=== PATIENT | male | born 1995 | race Caucasian/White ===

== ENCOUNTER 2021-01-11 17:20 | Emergency (ER) | payer SELFPAY ==
[2021-01-11 17:30] VITALS: BP 131/76; PULSE 70; RESP 16; TEMP 36.6; O2SAT 100
--- NOTE | 2021-01-11 17:55 | ED.GENADULT ---
HPI - General Adult General Chief complaint: Upper Respiratory Infection Stated complaint: dizzy/fulton/abdominal pain Source: patient and RN notes reviewed Mode of arrival: ambulatory History of Present Illness HPI narrative: This is a 25-year-old male who presented to urgent care with complaints of a migraine headache with dizziness and abdominal pain that developed 2 hours ago. Patient does have a history of migraine headaches and in the past has taken medications for he has not recently been prescribed any medications for his migraine headache. Patient did note that he takes Excedrin's on occasion but did not take any before coming to our urgent care he also complains of abdominal pain but notes that he has taken no medication with could be the cause of his abdominal pain. The patient denies SOB, CP, palpitation, extremity numbness, lightheadedness, mental status, recent head injury constipation, diarrhea, chills, Hematochezia or fever. Related Data Allergies Allergy/AdvReac Type Severity Reaction Status Date / Time No Known Allergies Allergy Verified 01/11/21 17:34 Review of Systems Review of Systems: A 14 organ system Review of Systems was performed and pertinent positives included in the HPI, otherwise remaining ROS is negative. [facility] Family History Family History (Updated 01/11/21 @ 17:58 by LAILA Rivero) Other Family history non-contributory Exam Narrative: GENERAL: This is a well-nourished, well-developed patient, in no apparent distress. HEAD: normocephalic, atraumatic. EYES: PERRL. Sclera clear/white. Vision is grossly intact. EARS: External ears normal, auditory canals clear and without drainage, TMs normal without perforation. Hearing grossly intact. NOSE: External nose normal with no obvious nasal discharge, nares without redness, no rhinorrhea. THROAT: Mucous membranes moist, posterior pharynx clear. NECK: Neck supple, non-tender without lymphadenopathy, masses or thyromegaly. CARDIOVASCULAR: Regular rate and rhythm without murmurs, gallops, or rubs. RESPIRATORY: Clear to auscultation. Breath sounds equal bilaterally. No wheezes, rales, or rhonchi. GASTROINTESTINAL: Abdomen soft, epigastric tender, nondistended. Bowel sounds are active. No hepato-splenomegaly, or palpable masses. No guarding. SKIN: warm, intact with no suspicious lesions or rash, good texture and turgor. NEURO: awake, alert, and oriented to person, place and time. There were no obvious focal neurologic abnormalities. Steady gait EXTREMITIES: Normal range of motion. No edema. No calf tenderness. Negative Homans sign bilaterally. BACK: Nontender without deformity or crepitance. No flank tenderness. Course Course Emergency Course: Patient will be giving Imitrex for migraine headaches he will need to follow-up with his primary care physician . Vital Signs Vital signs: Vital Signs Temperature 98 F 01/11/21 17:30 Pulse Rate 70 01/11/21 17:30 Respiratory Rate 16 01/11/21 17:30 Blood Pressure 131/76 01/11/21 17:30 Pulse Oximetry 100 01/11/21 17:30 Temperature 98 F 01/11/21 17:30 Pulse Rate 70 01/11/21 17:30 Respiratory Rate 16 01/11/21 17:30 Blood Pressure 131/76 01/11/21 17:30 Pulse Oximetry 100 01/11/21 17:30 Medical Decision Making Differential Diagnosis Differential Diagnosis: Migraine Vital Signs Vital Signs: Vital Signs Temperature 98 F 01/11/21 17:30 Pulse Rate 70 01/11/21 17:30 Respiratory Rate 16 01/11/21 17:30 Blood Pressure 131/76 01/11/21 17:30 Pulse Oximetry 100 01/11/21 17:30 Temperature 98 F 01/11/21 17:30 Pulse Rate 70 01/11/21 17:30 Respiratory Rate 16 01/11/21 17:30 Blood Pressure 131/76 01/11/21 17:30 Pulse Oximetry 100 01/11/21 17:30 Discharge Plan Discharge Clinical Impression: Migraine Qualifiers: Migraine type: without aura Status migrainosus presence: without status migrainosus Intractability: not intractable Qualified
== END 2021-01-11 18:03 | disposition home or self-care (01) ==
PROVIDERS: Emergency Provider Nurse Practitioner
DX: G43.009 Migraine without aura, not intractable, without status migrainosus (principal)
CPT/HCPCS: 99213; G0463